=== PATIENT | female | born 1960 | race Caucasian/White ===

== ENCOUNTER 2017-08-07 10:28 | Day surgery (SDC) | payer OTHER ==
[~2017-08-07] VITALS: Ht 170.2 cm; Wt 73.6 kg
[~2017-08-07 10:28] MED LIST: ASPI325T4 PO; Amoxicillin/Clavulanate K PO; DILT120C77 PO; FLUT9.9S NASAL; LISI-313 PO; [UNRECOGNIZED DRUG - CODE] PO
[2017-08-07] MEDS ORDERED: ASPI81TA3 PO (11:17)
[2017-08-07] MEDS ORDERED: POTASSIUM PO (11:18)
[2017-08-07] MEDS ORDERED: MULTIVITAMIN PO (11:18)
[2017-08-07] MEDS ORDERED: LOSARTAN PO (11:18)
[2017-08-07 11:25] VITALS: BP 147/72; PULSE 59; RESP 12
--- NOTE | 2017-08-07 11:50 | OPPN ---
Date/Time of Note Date/Time of Note DATE: 08/07/17 TIME: 11:49 Operative Report Preoperative Diagnosis Screening Postoperative Diagnosis Internal hemorrhoids No colon neoplasm was identified Operation/Procedure Performed Colonoscopy Surgeon see signature line physician's assistant None Anesthesia: moderate sedation Estimated blood loss: none Transfusion Required none Specimen None Grafts/Implants none Complications none LORNA RUIZ MD Aug 07, 2017 11:50
[2017-08-07] MEDS ORDERED: FENTAnyl 50 MCG/ML VIAL ONE (11:51)
[2017-08-07] MEDS ORDERED: MIDAZOLAM 1 MG/ML 2 ML INJ ONE (11:51)
--- NOTE | 2017-08-07 12:06 | GILP ---
DATE OF PROCEDURE: NAME OF PROCEDURE: Colonoscopy. SURGEON: Lorna Burks MD PREOPERATIVE DIAGNOSIS: Screening colonoscopy. POSTOPERATIVE DIAGNOSES 1. Colonoscopy all the way to the cecum. 2. Internal hemorrhoids. 3. No colon neoplasm was identified. INDICATION FOR THE PROCEDURE: Ms. Suzy Luna is a 57-year-old female patient who was scheduled for screening colonoscopy. The procedure and possible complications were well explained to the patient . The patient understood and consented to the procedure. DESCRIPTION OF PROCEDURE: Under the influence of fentanyl and Versed, the colonoscope was carefully introduced in the rectum and under direct vision it was advanced all the way to the cecum. FINDINGS: The patient had internal hemorrhoids. No colon neoplasm was identified. She tolerated the procedure very well and there was no complication from the procedure. At the end of the procedures, she was awake with stable vital signs and she was discharged home to the care of her family. IMPRESSION: 1. Colonoscopy all the way to the cecum. 2. Internal hemorrhoids. 3. No colon neoplasm was identified. PLAN: Next screening colonoscopy in 10 years. Dictated By: LORNA DE LEON/GEMA Conf#: [id number] DID#: [id number]
[2017-08-07 12:15] VITALS: BP 114/62; PULSE 54; RESP 16
== END 2017-08-07 13:02 | disposition home or self-care (01) ==
LOC: GIL 10:28
PROVIDERS: ATTEND Internal Medicine Gastroenterology
DX: Z12.11 Encounter for screening for malignant neoplasm of colon (principal); K64.8 Other hemorrhoids; I10 Essential (primary) hypertension
CPT/HCPCS: 45378; J2250; J3010

== ENCOUNTER 2017-09-10 11:57 | Day surgery (SDC) | payer OTHER ==
[~2017-09-10] VITALS: Ht 170.2 cm; Wt 73.9 kg
[2017-09-10] VITALS (10 sets, daily range): BP systolic 116–141; BP diastolic 63–82; PULSE 56–70; RESP 12–44; Ht 170.2 cm; Wt 73.9 kg
[~2017-09-10 11:57] MED LIST changes: -ASPI325T4 PO; +ASPI81TA3 PO; -Amoxicillin/Clavulanate K PO; +CEFAZOLIN 1 GM/50 ML (PMX) 50 ML IVPB SCH; -FLUT9.9S NASAL; -LISI-313 PO; +LOSARTAN PO; +MULTIVITAMIN PO; +POTASSIUM PO; -[UNRECOGNIZED DRUG - CODE] PO
[2017-09-10] MEDS ORDERED: LOSA50TA6 PO (12:40)
[2017-09-10] MEDS ORDERED: DILT240C98 PO (12:40)
[2017-09-10] MEDS ORDERED: MAGN400T27 PO (12:41)
[2017-09-10] MEDS ORDERED: LIDOCAINE 1% (MDV) 20 ML INJ ONE (13:51)
[2017-09-10] MEDS ORDERED: CEFAZOLIN 1 GM/50 ML (PMX) 50 ML IVPB ONE (14:00)
--- NOTE | 2017-09-10 19:11 | OPR ---
DATE OF OPERATION: 09/10/2017 INDICATION FOR THE PROCEDURE: Syncope and palpitations. The patient presents for a loop recorder implant. The patient has tried other monitors such as O2 monitor, and it has not shown the cause due to the f act that the patient's symptoms are not very frequent. PROCEDURE: 1. Implantation of [employer]onic loop recorder implant. 2. Interrogation of loop recorder implant. 3. O2 sat monitoring and blood pressure monitoring during the procedure as well as local sedation at the left chest region. PROCEDURE IN DETAIL: After informed consent was obtained by the patient, the patient a loop recorde r implant utilizing the [employer] tool. No complications occurred. Dressing was applied and the pa tient left the cardiac recovery room with no complications. Dictated By: MINH LORD MD, LP/GEMA Conf#: [id number] DID#: [id number]
--- NOTE | 2017-09-11 07:19 | RADRPT ---
Vent Rate: 62 bpm RR Interval: 0 msec CA Interval: 210 msec QRS Duration: 84 msec QT Interval: 438 msec QTC Interval: 444 msec P-R-T [place]: 33 - 10 - 13 degrees Sinus rhythm with 1st degree AV block Otherwise normal ECG Electronically Signed By: Toribio Tolbert [id number]
== END 2017-09-10 16:05 | disposition home or self-care (01) ==
LOC: SDS 11:57
PROVIDERS: ATTEND Internal Medicine
DX: I49.9 Cardiac arrhythmia, unspecified (principal); I48.91 Unspecified atrial fibrillation; I10 Essential (primary) hypertension; E78.5 Hyperlipidemia, unspecified; I83.90 Asymptomatic varicose veins of unspecified lower extremity; I73.9 Peripheral vascular disease, unspecified; R55 Syncope and collapse
CPT/HCPCS: 33282; 93005; J0690